=== PATIENT | female | born 1970 | race Hispanic/Latino ===

== ENCOUNTER 2018-03-08 19:34 | Emergency (ER) | payer BC, OTHER ==
[~2018-03-08] VITALS: Ht 147.3 cm; Wt 66.2 kg
[2018-03-08] MEDS ORDERED: ONDANSETRON HCL INJ 2 MG/ML VIAL IV STA (19:50)
[2018-03-08] MEDS ORDERED: SODIUM CHLORIDE 0.9% 1000ML 1,000 ML IV STA (19:50)
[2018-03-08] MEDS ORDERED: PANTOPRAZOLE 40 MG 10ML VIAL IV STA (19:50)
[2018-03-08] MEDS ORDERED: LIDOCAINE VISC 2% SOLN 15 ML UDC PO ONE (20:00)
[2018-03-08] MEDS ORDERED: MAGNESIUM/ALUMINUM/SIMETHICONE 30 ML UDC PO ONE (20:00)
[2018-03-08 20:17] LABS: BASOPHILS % 0.4 % (0.0-1.0); EOSINOPHILS # (AUTO) 0.2 (0.0-0.4); EOSINOPHILS % 9.8 % (0.0-6.0); HEMATOCRIT 30.7 % (34.2-44.1); HEMOGLOBIN 10.2 g/dL (12.0-16.0); LYMPHOCYTES # (AUTO) 0.3 (1.0-3.2); LYMPHOCYTES % 11.9 % (18.0-39.1); MEAN CORPUSCULAR HEMOGLOBIN 27.6 pg (28-32); MEAN CORPUSCULAR HGB CONC 33.2 g/dL (31-35); MONOCYTES # (AUTO) 0.2 (0.2-0.8); NEUTROPHILS # (AUTO) 1.7 (2.1-6.9); NEUTROPHILS % 68.5 % (38.7-80.0); PLATELET COUNT 221 x10e3/uL (140-360); RED CELL DISTRIBUTION WIDTH 13.5 % (11.7-14.4)
[2018-03-08 20:20] LABS: BILIRUBIN,URINE NEGATIVE (NEGATIVE); CLARITY,URINE SL CLOUDY (CLEAR); COLOR,URINE YELLOW (YELLOW); KETONES,URINE NEGATIVE (NEGATIVE); LEUKOCYTE ESTERASE ,URINE TRACE (NEGATIVE); NITRITE,URINE NEGATIVE (NEGATIVE); PROTEIN,URINE DIPSTICK 1+ (NEGATIVE); URINE UROBILINOGEN 0.2 mg/dL (0.2 - 1)
[2018-03-08 20:23] LABS: AMPHETAMINES SCREEN,URINE NEGATIVE (NEGATIVE); BENZODIAZEPINES SCREEN,URINE NEGATIVE (NEGATIVE); PHENCYCLIDINE SCREEN,URINE NEGATIVE (NEGATIVE)
[2018-03-08 20:32] LABS: ALANINE AMINOTRANSFERASE 77 IU/L (0-55); ALBUMIN 3.3 g/dL (3.5-5.0); ALBUMIN/GLOBULIN RATIO 0.7 (0.8-2.0); ALKALINE PHOSPHATASE 115 IU/L (40-150); AMYLASE 49 U/L (25-125); ANION GAP 13.4 mmol/L (8-16); BLOOD UREA NITROGEN 10 mg/dL (7-26); BUN/CREATININE RATIO 13 (6-25); CALCIUM 9.3 mg/dL (8.4-10.2); CARBON DIOXIDE 29 mmol/L (22-29); CHLORIDE 100 mmol/L (98-107); CREATININE, SERUM 0.77 mg/dL (0.57-1.11); EST GLOMERULAR FILTRATION RATE > 60 ML/MIN (60-); GLUCOSE 91 mg/dL (74-118); LIPASE 31 U/L (8-78); POTASSIUM 3.4 mmol/L (3.5-5.1); SODIUM 139 mmol/L (136-145)
[2018-03-08 20:34] LABS: BACTERIA,URINE MANY /HPF; EPITHELIAL CELLS,URINE MODERATE /LPF; TRANSITIONAL EPI CELLS,URINE FEW; WBC,URINE (MAN) 0-5 /HPF (0-5)
[2018-03-08 20:35] LABS: AMORPHOUS SEDIMENT,URINE MODERATE (FEW)
[2018-03-08] MEDS ORDERED: BELLADONNA ALK/PHENOBARBITAL 5 ML UDC PO SCH (21:00)
== END 2018-03-08 21:20 | disposition home or self-care (01) ==
LOC: ER 19:34
DX: R10.13 Epigastric pain (principal); R11.2 Nausea with vomiting, unspecified; K21.0 Gastro-esophageal reflux disease with esophagitis; B20 Human immunodeficiency virus [HIV] disease
CPT/HCPCS: 36415; 80053; 80307; 81001; 82150; 83690; 85025; 87086; 99283; J2405